=== PATIENT | male | born 1995 | race Caucasian/White ===

== ENCOUNTER 2018-09-09 18:48 | Emergency (ER) | payer SELFPAY ==
[2018-09-09 18:58] VITALS: BP 139/69
--- NOTE | 2018-09-09 20:11 | RADIOLOGY REPORT (SQ) ---
EXAM DESCRIPTION: FOOT RIGHT COMPLETE COMPLETED DATE/TIME: 09/09/2018 7:57 pm REASON FOR STUDY: foot pain after dancing COMPARISON: None. NUMBER OF VIEWS: Three views. TECHNIQUE: AP, lateral and oblique radiographic images acquired of the right foot. LIMITATIONS: None. FINDINGS: MINERALIZATION: Normal. BONES: Nondisplaced transverse fracture of the 5th metacarpal proximal diaphysis. JOINTS: No effusions. SOFT TISSUES: No soft tissue swelling. No foreign body. OTHER: No other significant finding. IMPRESSION: Nondisplaced transverse fracture of the 5th metacarpal. TECHNICAL DOCUMENTATION: JOB ID: [id number] [employer]- All Rights Reserved Reading location - IP/workstation name: [email or web address]
[2018-09-09] MEDS ORDERED: HYDROCODONE/ACETAMINOPHEN 5-325 MG (6 TAB/ER DISP) PO PRN (20:37)
--- NOTE | 2018-09-09 20:43 | ER Document Report ---
HPI - HPI Pain Level: 4 Notes: Patient is a 23-year-old male who presents with chief complaint of right foot pain. Patient reports he was out dancing last night when he felt and heard a loud popping sound. Patient reports he has not taken any medications but thought he should come get it checked out. - CONSTITUTIONAL Constitutional: DENIES: Fever, Chills - EENT EENT: DENIES: Sore Throat, Ear Pain, Eye problems - NEURO Neurology: DENIES: Headache, Weakness, Vision blurred, Dizzinesss / Vertigo - CARDIOVASCULAR Cardiovascular: DENIES: Chest pain - RESPIRATORY Respiratory: DENIES: Trouble Breathing, Coughing - GASTROINTESTINAL Gastrointestinal: DENIES: Abdominal Pain, Black / Bloody Stools - MUSCULOSKELETAL Musculoskeletal: REPORTS: Extremity pain Past Medical History - General Information source: Patient - Social History Smoking Status: Current Every Day Smoker Chew tobacco use (# tins/day): No Frequency of alcohol use: None Drug Abuse: None Family History: Reviewed & Not Pertinent Patient has suicidal ideation: No Patient has homicidal ideation: No - Medical History Medical History: Negative Renal/ Medical History: Denies: Hx Peritoneal Dialysis Surgical Hx: Negative - Immunizations Immunizations up to date: Yes Vertical Provider Document - CONSTITUTIONAL Notes: PHYSICAL EXAMINATION: GENERAL: Well-appearing, well-nourished and in no acute distress. HEAD: Atraumatic, normocephalic. EYES: Pupils equal round extraocular movements intact, conjunctiva are normal. ENT: Nares patent NECK: Normal range of motion LUNGS: No respiratory distress Musculoskeletal: Normal range of motion, swelling and ecchymosis noted to medial aspect of right foot. Cap refill less than 3 seconds, normal motor and sensation distal to injury. NEUROLOGICAL: Normal speech, normal gait. PSYCH: Normal mood, normal affect. SKIN: Warm, Dry, normal turgor, no rashes or lesions noted. - INFECTION CONTROL TRAVEL OUTSIDE OF THE [place] IN LAST 30 DAYS: No Course - Re-evaluation Re-evalutation: X-ray reveals right fifth metatarsal fracture that is nondisplaced. Patient will be placed in a splint, and discharged home to follow-up with orthopedics. - Vital Signs Vital signs: Temp Pulse Resp BP Pulse Ox 98.7 F 83 18 139/69 H 98 09/09/18 18:57 10/20/18 18:57 09/09/18 18:57 09/09/18 18:57 09/09/18 18:57 Procedures - Immobilization Right foot Pre-Proc Neuro Vasc Exam: Normal Immobilizer type: Crutches, Posterior ankle Performed by: PCT Post-Proc Neuro Vasc Exam: Normal Alignment checked and good: Yes Discharge - Discharge Clinical Impression: Metatarsal bone fracture Qualifiers: Encounter type: initial encounter Metatarsal bone: fifth Fracture type: closed Fracture alignment: nondisplaced Laterality: right Qualified Code(s): S92.354A - Nondisplaced fracture of fifth metatarsal bone, right foot, initial encounter for closed fracture Condition: Stable Disposition: HOME, SELF-CARE Additional Instructions: Fracture You have a fracture. The typical broken bone requires only protection and sufficient time for healing. "Setting" is necessary only if the bones are crooked or out of position. The physician will re-assess you periodically to make certain that the bone heals without complications. It's important that you follow the instructions given you. The initial treatment is immobilization, elevation of the injury, and cold packs. Not all fractures require a cast. Depending on the location and type of fracture, immobilization may consist of a splint, cast, sling, bulky dressing , or simply rest. The length of time required for healing depends on the location and type of fracture, and on the age of the patient. The treatment plan the physician has outlined for you is customized to your fracture and health condition. Call the doctor or return at once if pain becomes severe, or if severe swelling or numbness develop. You have a fracture of the 5th metatarsal bone in your foot. Keep the splint in place until seen by orthopedics. Take ibuprofen 600 mg every 6 hours for pain. Use the narcotic pain medication only as needed for severe pain. Apply ice packs to the extremity. Use the crutches as directed. Prescriptions: Hydrocodone/Acetaminophen [Hydrocodon-Acetaminophen 5-325] 1 each PO Q4H PRN # 10 tablet PRN Reason: For Pain Referrals: ABBIE TOLENTINO, [ACTIVE STAFF] - Follow up as needed
== END 2018-09-09 20:52 | disposition home or self-care (01) ==
LOC: ER 18:48
DX: S92.354A Nondisplaced fracture of fifth metatarsal bone, right foot, initial encounter for closed fracture (principal); M79.671 Pain in right foot; F17.200 Nicotine dependence, unspecified, uncomplicated
CPT/HCPCS: 99283